=== PATIENT | male | born 1995 | race Caucasian/White ===

== ENCOUNTER → 2021-05-25 | Outpatient (CLI) | payer OTHER ==
--- NOTE | 2021-05-29 18:14 | SLEEPCENT ---
DATE: 05/25/2021 ORDERED BY: ELLE Stinson Nocturnal polysomnography was performed for evaluation of sleep physiology in this patient with a history of excessive somnolence and nonrestorative sleep. Seven hours and 20 minutes of data were reviewed. There were 412.5 minutes of sleep identified. Sleep latency was normal at 6.5 minutes. REM sleep was somewhat delayed at 152 minutes. Sleep architecture once established was good. There were three REM cycles. Overall sleep efficiency was 95.2%. The electrocardiogram showed a sinus rhythm with an average heart rate of 58 beats per minute. EEG showed essentially normal waveforms for wake and sleep. There were no focal events identified. There was only 1 respiratory event identified of 10 seconds in duration or greater. Snoring was however noted. Respiratory-related arousals were seen 0.1 times per hour. There was no significant limb activity and trains and snoring was noted on the monitor. IMPRESSION: Normal polysomnogram with snoring.
== END ==
LOC: M SLEEP 20:00
PROVIDERS: ATTEND Nurse Practitioner Family
DX: R06.83 Snoring (principal)